=== PATIENT | male | born 1980 | race Caucasian/White ===

== ENCOUNTER 2017-10-22 18:23 | Emergency (ER) | payer SELFPAY ==
[2017-10-22 18:57] LABS: % BASOPHILS 3.3 % (0.0-2.0); % EOSINOPHILS 2.9 % (0.0-5.0); % LYMPHOCYTES 20.5 % (20.0-50.0); % MONOCYTES 7.1 % (2.0-10.0); % NEUTROPHILS 66.2 % (40.0-80.0); BASOPHILE ABSOLUTE 0.3 Th/cumm (0-0.2); EOSINOPHILE ABSOLUTE 0.2 Th/cmm (0.1-0.4); HEMOGLOBIN 15.4 gm/dL (12-16); LYMPHOCYTE ABSOLUTE 1.7 Th/cmm (1.5-3.0); MEAN CELL VOLUME 93.7 fl (80-99); MEAN CORPUSCULAR HEMOGLOBIN 30.7 pg (26.0-30.0); MEAN CORPUSCULAR HGB CONC 32.8 pg (28.0-36.0); MEAN PLATELET VOLUME 9.6 fl; MONOCYTE ABSOLUTE 0.6 Th/cmm (0.3-1.0); NEUTROPHILE ABSOLUTE 5.6 Th/cmm (1.8-8.0); PLATELET COUNT 230 Th/cmm (150-400); RED BLOOD COUNT 5.02 Mil/cmm (4.30-5.70); RED CELL DISTRIBUTION WIDTH 12.7 % (11.5-20.0); WHITE BLOOD COUNT 8.4 Th/cmm (4.8-10.8)
[2017-10-22 19:09] LABS: PROTHROMBIN TIME (TEST) 10.4 SECONDS (9.5-11.5)
[2017-10-22 19:13] LABS: ALB/GLOB RATIO 1.7 (1.0-1.8); ALBUMIN 4.5 gm/dL (4.2-5.5); ALKALINE PHOSPHATASE 45 U/L (34-104); ANION GAP 8.9 (7.0-16.0); BILIRUBIN,TOTAL 0.5 mg/dL (0.3-1.0); BUN - UREA NITROGEN 15 mg/dL (7-25); CALCIUM SERUM 9.3 mg/dL (8.6-10.3); CARBON DIOXIDE 26.9 mEq/L (21.0-31.0); CHLORIDE 107 mEq/L (98-107); GFR AFRICAN-AMERICAN > 60.0 ml/min (>90); GFR NON AFRICAN-AMERICAN > 60.0 ml/min; GLUCOSE 97 mg/dL (70-105); POTASSIUM SERUM 3.8 mEq/L (3.5-5.1); SGOT 15 U/L (13-39); SGPT/ALT 14 U/L (7-52); SODIUM SERUM 139 mEq/L (136-145); TOTAL PROTEIN,SERUM 7.1 gm/dL (6.0-8.3)
--- NOTE | 2017-10-22 19:15 | ED Physician Chart ---
ED Chief Complaint/HPI - Patient Information Date Seen:: 10/22/17 Time Seen:: 18:35 History of Present Illness:: THIS IS A 36 YO MALE WITH THE SUDDEN ONSET OF RIGHT FLANK PAIN AND BLOOD IN THE URINE. HE HAS A PAST HISTORY OF A RENAL STONE ON THE RIGHT SIDE THAT RADIATE DOWN TO THE RIGHT TESTICLE. HE ALSO HAS DIFFICULT URINATING. HE DENIES NAUSEA , VOMITING AND DIARRHEA. Allergies:: Allergies Allergy/AdvReac Type Severity Reaction Status Date / Time No Known Allergies Allergy Verified 10/22/17 18:41 Vitals:: Vital Signs - 8 hr 10/22/17 18:31 Temp 98.9 F HR 84 RR 16 BP 129/79 O2 Sat % 98 Historian:: Patient Review:: Nurse's Note Reviewed ED Review of Systems - Review of Systems G/U: Dysuria, Hematuria ED Past Medical History - Past Medical History Obtainable: Yes Past Medical History: No significant medical hx Family History: None Social History: Smoker, No Alcohol, No Drug Use Surgical History: other (LEFT WRIST SURGERY) Psychiatricy History: None Family Medical History - Family Member Father History Unknown: Yes Living Status: Hx Family Cancer: No Hx Family Congestive Heart Failure: No Hx Family Hypertension: No Hx Family Diabetes: Yes Hx Family Dementia: No Hx Family AIDS: No ED Physical Exam - Physical Examination General/Constitutional: Awake, Well-developed, well-nourished, Alert, No distress, GCS 15, Non-toxic appearing, Ambulatory Head: Atraumatic Eyes: Lids, conjuctiva normal, PERRL, EOMI Skin: Nl inspection, No rash, No skin lesions, No ecchymosis, Well hydrated, No lymphadenopathy ENMT: External ears, nose nl, Nasal exam nl, Lips, teeth, gums nl Neck: Nontender, Full ROM w/o pain, No JVD, No nuchal rigidity, No bruit, No mass, No stridor Respiratory: Nl effort/Exclusion, Clear to Auscultation, No Wheeze/Rhonchi/Rales Cardio Vascular: RRR, No murmur, gallop, rubs, NL S1 S2 GI: No tenderness/rebounding/guarding, No organomegaly, No hernia, Normal BS's, Nondistended, No mass/bruits, No McBurney tenderness : No CVA tenderness Extremities: No tenderness or effusion, Full ROM, normal strength in all extremities, No edema, Normal digits & nails Neuro/Psych: Alert/oriented, DTR's symmetric, Normal sensory exam, Normal motor strength, Judgement/insight normal, Mood normal, Normal gait, No focal deficits Misc: Normal back, No paraspinal tenderness ED Labs/Radiology/EKG Results - Lab Results Results: Laboratory Tests 10/22/17 18:50 WBC 8.4 RBC 5.02 Hgb 15.4 Hct 47.0 MCV 93.7 MCH 30.7 H MCHC Differential 32.8 RDW 12.7 Plt Count 230 MPV 9.6 Neutrophils % 66.2 Lymphocytes % 20.5 Monocytes % 7.1 Eosinophils % 2.9 Basophils % 3.3 H ED Assessment - Assessment General Assessment: HEMATURIA ED Septic Shock - . Is Septic Shock (SBP<90, OR Lactate>4 mmol\L) present?: No - <6hrs of presentation: Vital Signs: Vital Signs - 8 hr 10/22/17 18:31 Temp 98.9 F HR 84 RR 16 BP 129/79 O2 Sat % 98 ED Reassessment (Disposition) - Reassessment Reassessment Condition:: Improved
[2017-10-22 19:17] LABS: URINE SOURCE CLEAN C
[2017-10-22 19:20] LABS: URINE BILIRUBIN MODERATE (NEGATIVE); URINE BLOOD LARGE (NEGATIVE); URINE COLOR YELLOW; URINE GLUCOSE (UA) NEGATIVE (NEGATIVE); URINE KETONE NEGATIVE (NEGATIVE); URINE LEUKOCYTE ESTERASE TRACE (NEGATIVE); URINE MICROSCOPIC INDICATED? YES; URINE NITRATE POSITIVE (NEGATIVE); URINE PH 5.5 (4.6 - 8.0); URINE PROTEIN 100 mg/dL (NEGATIVE)
[2017-10-22] MEDS ORDERED: Sodium Chloride 0.45% 1,000 ML IV ONE (19:20)
[2017-10-22 19:21] LABS: URINE CLARITY HAZY (CLEAR)
[2017-10-22 19:24] LABS: URINE BACTERIA 2+ /hpf (NONE SEEN); URINE EPITHELIAL CELLS OCCASIONAL /lpf (FEW); URINE RBC >100 /hpf (0-5)
[2017-10-22 19:28] LABS: AMPHETAMINE URINE NEGATIVE (NEGATIVE); BARBITURATES URINE NEGATIVE (NEGATIVE); BENZODIAZEPINES QUAL URINE NEGATIVE (NEGATIVE); CANNABINOID THC POSITIVE (NEGATIVE); COCAINE METABOLITE QUAL URINE NEGATIVE (NEGATIVE); METHADONE URINE NEGATIVE (NEGATIVE); METHAMPHETAMINES QUAL URINE NEGATIVE (NEGATIVE); OPIATES (MORPHINE) QUAL. URINE NEGATIVE (NEGATIVE); PHENCYCLIDINE (PCP) URINE NEGATIVE (NEGATIVE); TRICYCLICS (TCA) QUAL. URINE NEGATIVE (NEGATIVE)
--- NOTE | 2017-10-23 10:00 | Diagnostic Imaging Report ---
CT scan of the abdomen and pelvis without intravenous contrast History: Renal stones right side Total DLP equals 482 CTDI equals 10.1 Axial sections were obtained from the xiphoid process down to the pubic symphysis. The liver demonstrates a normal size and contour. No focal lesions are seen. The spleen appears normal. No abnormalities are seen in the region of the pancreas. The kidneys appear normal bilaterally. There is no evidence of obstructive uropathy. There is evidence for 1 mm calculus impacted in the right ureter fecal junction. The appendix is normal. The exam of the pelvis demonstrates preservation of normal fat planes. No abnormal soft tissue masses. No abnormal fluid collections. Impression: 1 mm calcification impacted in the right ureterovesical junction.
== END 2017-10-22 20:50 | disposition home or self-care (01) ==
LOC: ER 18:23
DX: R31.9 Hematuria, unspecified (principal); R30.0 Dysuria; F17.200 Nicotine dependence, unspecified, uncomplicated; Z87.442 Personal history of urinary calculi
CPT/HCPCS: 99285; 96374; 96375; 74176; 36415; 80307; 85025; 85610; 85730; 87086; 81001; 80053; 87040 ×2; J1885; J0696